=== PATIENT | male | born 1945 ===

== ENCOUNTER 2022-12-10 12:35 | Inpatient (IN) | payer MEDICARE ==
[2022-12-10 13:37] LABS: #Monocytes 0.6 10x3/uL (0.0-1.1); #Neutrophils 9.7 10x3/uL (1.5-8.4); %Basophils 0.4 % (0.0-2.0); %Eosinophils 0.3 % (0.0-6.0); %Lymphocytes 3.8 % (18.0-47.0); %Monocytes 5.4 % (0.0-10.0); %Neutrophils 89.7 % (40.0-75.0); Hematocrit 33.9 % (38.8-50.0); Hemoglobin 10.8 g/dL (13.5-17.5); Mean Corpuscular HGB CONC 31.9 g/dL (32.0-36.0); Mean Corpuscular Hemoglobin 32.5 pg (27.0-33.0); Mean Corpuscular Volume 102.1 fl (81.2-95.1); Mean Platelet Volume 11.3 fl (7.4-10.4); Platelet Count 158 10x3/uL (150-450); RBC Distribution Width 16.6 % (11.5-14.5); Red Blood Cell (RBC) Count 3.32 10x6/uL (4.32-5.72); White Blood Cell (WBC) Count 10.8 10x3/uL (3.5-10.5)
[2022-12-10 13:50] LABS: ALT (SGPT) Less than 7 U/L (8-55); AST (SGOT) 20 U/L (5-34); Albumin 3.5 g/dL (3.4-4.8); Alkaline Phosphatase 136 U/L (40-110); Anion Gap 22 mmol/L (10-20); BUN (Urea Nitrogen) 38 mg/dL (8.4-25.7); Bilirubin, Total 0.9 mg/dL (0.2-1.2); Calc. Creatinine Clearance 0 mL/min (70-130); Calcium 8.9 mg/dL (7.8-10.44); Carbon Dioxide 25 mmol/L (23-31); Chloride 96 mmol/L (98-107); Estimated GFR 12; Globulin 4.3 g/dL (2.4-3.5); Glucose 195 mg/dL (83-110); Magnesium 2.2 mg/dL (1.6-2.6); Potassium 4.2 mmol/L (3.5-5.1); Protein, Total 7.8 g/dL (5.8-8.1); Sodium 139 mmol/L (136-145)
[2022-12-10 13:56] LABS: Troponin I 0.097 ng/mL (< 0.028)
[2022-12-10 14:24] LABS: SARS-CoV-2 NAA Rapid Test Not Detected (NotDetected)
[2022-12-10] MEDS ORDERED: Furosemide 40 MG/4 ML VIAL ONE (14:57)
[2022-12-10] MEDS ORDERED: Glucagon 1 MG/ML KIT IM PRN (15:43)
[2022-12-10] MEDS ORDERED: Dextrose 5% in Water 1,000 ML IV PRN (15:43)
[2022-12-10] MEDS ORDERED: Dextrose 50% Abboject 50 ML SYRINGE SLOW IVP PRN (15:43)
[2022-12-10] MEDS ORDERED: Ondansetron ODT 4 MG TAB PO PRN (15:43)
[2022-12-10] MEDS: Heparin 5,000 UNITS/ML VIAL SC SCH (22:13)
[2022-12-10] MEDS ORDERED: Heparin 10,000 UNITS/ 10 ML VIAL CATH SCH ×2 (22:15)
[2022-12-11 01:45] LABS: HBSAg Index 0.26 S/CO (0-0.99); Hep B Surf Ag Non-Reactive S/CO (NonReactive)
[2022-12-11 05:54] LABS: ALT (SGPT) Less than 7 U/L (8-55); AST (SGOT) 18 U/L (5-34); Albumin 3.3 g/dL (3.4-4.8); Alkaline Phosphatase 126 U/L (40-110); Anion Gap 23 mmol/L (10-20); BUN (Urea Nitrogen) 28 mg/dL (8.4-25.7); Calc. Creatinine Clearance 41 mL/min (70-130); Calcium 9.1 mg/dL (7.8-10.44); Carbon Dioxide 24 mmol/L (23-31); Chloride 96 mmol/L (98-107); Estimated GFR 15; Globulin 4.5 g/dL (2.4-3.5); Glucose 129 mg/dL (83-110); Magnesium 2.1 mg/dL (1.6-2.6); Protein, Total 7.8 g/dL (5.8-8.1); Sodium 139 mmol/L (136-145)
[2022-12-11 06:06] LABS: #Basophils 0.1 10x3/uL (0.0-0.2); #Monocytes 0.7 10x3/uL (0.0-1.1); #Neutrophils 11.8 10x3/uL (1.5-8.4); %Basophils 0.5 % (0.0-2.0); %Eosinophils 0.2 % (0.0-6.0); %Lymphocytes 3.9 % (18.0-47.0); %Neutrophils 90.1 % (40.0-75.0); Hematocrit 32.5 % (38.8-50.0); Hemoglobin 10.3 g/dL (13.5-17.5); Mean Corpuscular HGB CONC 31.7 g/dL (32.0-36.0); Mean Corpuscular Hemoglobin 32.5 pg (27.0-33.0); Mean Corpuscular Volume 102.5 fl (81.2-95.1); Mean Platelet Volume 11.1 fl (7.4-10.4); Platelet Count 164 10x3/uL (150-450); RBC Distribution Width 16.6 % (11.5-14.5); Red Blood Cell (RBC) Count 3.17 10x6/uL (4.32-5.72); White Blood Cell (WBC) Count 13.1 10x3/uL (3.5-10.5)
[2022-12-11] MEDS: Aspirin Chewable 81 MG TAB PO SCH (08:37)
[2022-12-11] MEDS: Lisinopril 2.5 MG TAB PO SCH (08:37)
[2022-12-11] MEDS: Heparin 5,000 UNITS/ML VIAL SC SCH (10:53)
[2022-12-11 14:34] LABS: HBSAB Concentration 13.19 mIU/mL; Hep B Surf AB Reactive (NonReactive)
[2022-12-11] MEDS: cefTRIAXone\\ROCEPHIN 1 GM in Sodium Chloride 0.9% 100 ML IVPB SCH (15:22)
[2022-12-11] MEDS ORDERED: Apixaban 2.5 MG TAB PO SCH (21:00)
[2022-12-11] MEDS: Atorvastatin Calcium 10 MG TAB PO SCH (22:15)
[2022-12-11] MEDS: Apixaban 5 MG TAB PO SCH (22:15)
[2022-12-11] MEDS: Insulin Regular 300 UNITS/3 ML VIAL SC PRN (22:45)
[2022-12-11] MEDS: Lantus 1000 UNITS/10 ML VIAL SC SCH (22:46)
[2022-12-12 05:35] LABS: Hematocrit 30.6 % (38.8-50.0); Hemoglobin 9.8 g/dL (13.5-17.5); Mean Corpuscular Hemoglobin 32.5 pg (27.0-33.0); Mean Corpuscular Volume 101.3 fl (81.2-95.1); Mean Platelet Volume 11.2 fl (7.4-10.4); Platelet Count 155 10x3/uL (150-450); RBC Distribution Width 16.6 % (11.5-14.5); Red Blood Cell (RBC) Count 3.02 10x6/uL (4.32-5.72); White Blood Cell (WBC) Count 10.4 10x3/uL (3.5-10.5)
[2022-12-12 05:38] LABS: MDiff Complete? YES
[2022-12-12] MEDS: Levothyroxine 150 MCG TAB PO SCH (05:41)
[2022-12-12 06:34] LABS: Band 9 % (5-11); Lymphocytes 5 % (21-51); Monocytes 2 % (0-10); Neutrophil 84 % (42-75)
[2022-12-12 06:40] LABS: Hypochromia SLIGHT = 6-15 cells (100X) (0-5/hpf)
[2022-12-12 06:41] LABS: Platelet Adequacy Comment Appears Adequate
[2022-12-12 06:44] LABS: Anion Gap 21 mmol/L (10-20); BUN (Urea Nitrogen) 26 mg/dL (8.4-25.7); Calc. Creatinine Clearance 45 mL/min (70-130); Calcium 8.7 mg/dL (7.8-10.44); Carbon Dioxide 22 mmol/L (23-31); Chloride 97 mmol/L (98-107); Estimated GFR 17; Glucose 161 mg/dL (83-110); Potassium 4.2 mmol/L (3.5-5.1); Sodium 136 mmol/L (136-145)
[2022-12-12 06:47] LABS: Troponin I 0.078 ng/mL (< 0.028)
[2022-12-12] MEDS: Aspirin Chewable 81 MG TAB PO SCH (08:09)
[2022-12-12] MEDS: FLUoxetine HCl 20 MG CAP PO SCH (08:09)
[2022-12-12] MEDS: cefTRIAXone\\ROCEPHIN 1 GM in Sodium Chloride 0.9% 100 ML IVPB SCH (08:09)
[2022-12-12] MEDS: Lisinopril 2.5 MG TAB PO SCH (08:09)
[2022-12-12] MEDS: Apixaban 5 MG TAB PO SCH ×2 (08:09→20:48)
[2022-12-12] MEDS ORDERED: Heparin 10,000 UNITS/ 10 ML VIAL SLOW IVP PRN (09:03)
[2022-12-12] MEDS ORDERED: Meropenem 500 MG in Sodium Chloride 0.9% 100 ML IVPB SCH (11:35)
[2022-12-12] MEDS ORDERED: Meropenem 1 GM in Sodium Chloride 0.9% 100 ML IVPB SCH (12:00)
[2022-12-12] MEDS: Insulin Regular 300 UNITS/3 ML VIAL SC PRN (16:26)
[2022-12-12] MEDS: Acetaminophen 325 MG TAB PO PRN (20:47)
[2022-12-12] MEDS: Lantus 1000 UNITS/10 ML VIAL SC SCH (20:48)
[2022-12-12] MEDS: Atorvastatin Calcium 10 MG TAB PO SCH (20:48)
[2022-12-12] MEDS: Meropenem 500 MG in Sodium Chloride 0.9% 100 ML IVPB SCH (20:58)
[2022-12-12] MEDS ORDERED: guaiFENesin ER 600 MG TAB PO SCH (21:30)
[2022-12-13] MEDS: Acetaminophen 325 MG TAB PO PRN ×2 (03:09→20:36)
[2022-12-13 04:18] VITALS: BMI 60.4
[2022-12-13] MEDS: Levothyroxine 150 MCG TAB PO SCH (05:42)
[2022-12-13 05:57] LABS: Hematocrit 30.2 % (38.8-50.0); Hemoglobin 9.6 g/dL (13.5-17.5); MDiff Complete? YES; Mean Corpuscular HGB CONC 31.8 g/dL (32.0-36.0); Mean Corpuscular Hemoglobin 31.6 pg (27.0-33.0); Mean Corpuscular Volume 99.3 fl (81.2-95.1); Platelet Count 178 10x3/uL (150-450); RBC Distribution Width 16.4 % (11.5-14.5); Red Blood Cell (RBC) Count 3.04 10x6/uL (4.32-5.72); White Blood Cell (WBC) Count 18.2 10x3/uL (3.5-10.5)
[2022-12-13 06:00] LABS: Anion Gap 17 mmol/L (10-20); BUN (Urea Nitrogen) 28 mg/dL (8.4-25.7); Calc. Creatinine Clearance 49 mL/min (70-130); Calcium 9.1 mg/dL (7.8-10.44); Carbon Dioxide 25 mmol/L (23-31); Chloride 96 mmol/L (98-107); Estimated GFR 19; Glucose 156 mg/dL (83-110); Potassium 3.8 mmol/L (3.5-5.1); Sodium 134 mmol/L (136-145)
[2022-12-13] MEDS: Insulin Regular 300 UNITS/3 ML VIAL SC PRN ×2 (06:15→16:28)
[2022-12-13 06:55] LABS: Band 8 % (5-11); Lymphocytes 2 % (21-51); Monocytes 6 % (0-10); Neutrophil 83 % (42-75); Reactive Lymphocytes 1 % (0-10)
[2022-12-13 06:59] LABS: Hypochromia SLIGHT = 6-15 cells (100X) (0-5/hpf); Microcytosis SLIGHT = 6-15 cells (100X) (0-5/hpf); Ovalocytes SLIGHT = 2-5 cells (100X) (0-1/hpf); Target Cells SLIGHT = 2-5 cells (100X) (0-1/hpf)
[2022-12-13 07:00] LABS: Platelet Adequacy Comment Appears Adequate
[2022-12-13] MEDS: Apixaban 5 MG TAB PO SCH ×2 (08:31→20:35)
[2022-12-13] MEDS: guaiFENesin ER 600 MG TAB PO SCH ×2 (08:31→20:35)
[2022-12-13] MEDS: Lisinopril 2.5 MG TAB PO SCH (08:31)
[2022-12-13] MEDS: Aspirin Chewable 81 MG TAB PO SCH (08:31)
[2022-12-13] MEDS: FLUoxetine HCl 20 MG CAP PO SCH (08:31)
[2022-12-13] MEDS ORDERED: GUAIFENESIN SF SOLN 200 MG/10 ML UDCUP PO PRN (09:46)
[2022-12-13] MEDS: Atorvastatin Calcium 10 MG TAB PO SCH (20:35)
[2022-12-13] MEDS: Lantus 1000 UNITS/10 ML VIAL SC SCH (20:35)
[2022-12-13] MEDS: Meropenem 500 MG in Sodium Chloride 0.9% 100 ML IVPB SCH (21:46)
[2022-12-14] MEDS ORDERED: traMADol HCl 50 MG TAB PO SCH (01:45)
[2022-12-14] MEDS ORDERED: Calcium Gluc 4.6 MEQ/10 ML (100 MG/ML) SLOW IVP SCH (04:45)
[2022-12-14 05:16] LABS: #Eosinphils 0.1 10x3/uL (0.0-0.5); %Basophils 0.2 % (0.0-2.0); %Eosinophils 0.3 % (0.0-6.0); %Lymphocytes 2.2 % (18.0-47.0); %Monocytes 5.5 % (0.0-10.0); %Neutrophils 90.8 % (40.0-75.0); Hematocrit 27.9 % (38.8-50.0); Hemoglobin 9.1 g/dL (13.5-17.5); Mean Corpuscular HGB CONC 32.6 g/dL (32.0-36.0); Mean Corpuscular Hemoglobin 31.8 pg (27.0-33.0); Mean Corpuscular Volume 97.6 fl (81.2-95.1); Mean Platelet Volume 10.6 fl (7.4-10.4); Platelet Count 184 10x3/uL (150-450); RBC Distribution Width 16.2 % (11.5-14.5); Red Blood Cell (RBC) Count 2.86 10x6/uL (4.32-5.72); White Blood Cell (WBC) Count 18.7 10x3/uL (3.5-10.5)
[2022-12-14 05:17] LABS: Anion Gap 15 mmol/L (10-20); BUN (Urea Nitrogen) 41 mg/dL (8.4-25.7); Calc. Creatinine Clearance 41 mL/min (70-130); Calcium 8.9 mg/dL (7.8-10.44); Carbon Dioxide 28 mmol/L (23-31); Chloride 96 mmol/L (98-107); Estimated GFR 15; Glucose 199 mg/dL (83-110); Potassium 3.7 mmol/L (3.5-5.1); Sodium 135 mmol/L (136-145)
[2022-12-14] MEDS: Levothyroxine 150 MCG TAB PO SCH (06:23)
[2022-12-14] MEDS: Insulin Regular 300 UNITS/3 ML VIAL SC PRN ×2 (06:52→18:05)
[2022-12-14] MEDS: guaiFENesin ER 600 MG TAB PO SCH ×2 (08:39→22:43)
[2022-12-14] MEDS: Aspirin Chewable 81 MG TAB PO SCH (08:39)
[2022-12-14] MEDS: Apixaban 5 MG TAB PO SCH ×2 (08:39→22:43)
[2022-12-14] MEDS: FLUoxetine HCl 20 MG CAP PO SCH (08:39)
[2022-12-14] MEDS: Lisinopril 2.5 MG TAB PO SCH (08:39)
[2022-12-14] MEDS: Meropenem 500 MG in Sodium Chloride 0.9% 100 ML IVPB SCH (22:40)
[2022-12-14] MEDS: Acetaminophen 325 MG TAB PO PRN (22:42)
[2022-12-14] MEDS: Lantus 1000 UNITS/10 ML VIAL SC SCH (22:42)
[2022-12-14] MEDS: Atorvastatin Calcium 10 MG TAB PO SCH (22:43)
[2022-12-15 05:38] LABS: #Eosinphils 0.1 10x3/uL (0.0-0.5); #Monocytes 0.8 10x3/uL (0.0-1.1); #Neutrophils 11.1 10x3/uL (1.5-8.4); %Basophils 0.3 % (0.0-2.0); %Eosinophils 0.6 % (0.0-6.0); %Lymphocytes 4.9 % (18.0-47.0); %Monocytes 6.5 % (0.0-10.0); %Neutrophils 86.2 % (40.0-75.0); Hematocrit 30.2 % (38.8-50.0); Hemoglobin 9.9 g/dL (13.5-17.5); Mean Corpuscular HGB CONC 32.8 g/dL (32.0-36.0); Mean Corpuscular Hemoglobin 32.2 pg (27.0-33.0); Mean Corpuscular Volume 98.4 fl (81.2-95.1); Mean Platelet Volume 11.3 fl (7.4-10.4); Platelet Count 189 10x3/uL (150-450); RBC Distribution Width 16.7 % (11.5-14.5); Red Blood Cell (RBC) Count 3.07 10x6/uL (4.32-5.72); White Blood Cell (WBC) Count 12.9 10x3/uL (3.5-10.5)
[2022-12-15 05:52] LABS: Anion Gap 19 mmol/L (10-20); BUN (Urea Nitrogen) 40 mg/dL (8.4-25.7); Calc. Creatinine Clearance 46 mL/min (70-130); Calcium 9.1 mg/dL (7.8-10.44); Carbon Dioxide 26 mmol/L (23-31); Chloride 96 mmol/L (98-107); Estimated GFR 18; Glucose 184 mg/dL (83-110); Potassium 4.3 mmol/L (3.5-5.1); Sodium 137 mmol/L (136-145)
[2022-12-15] MEDS: Levothyroxine 150 MCG TAB PO SCH (05:52)
[2022-12-15] MEDS: Lisinopril 2.5 MG TAB PO SCH (08:44)
[2022-12-15] MEDS: Aspirin Chewable 81 MG TAB PO SCH (08:44)
[2022-12-15] MEDS: Apixaban 5 MG TAB PO SCH ×2 (08:44→21:05)
[2022-12-15] MEDS: FLUoxetine HCl 20 MG CAP PO SCH (08:44)
[2022-12-15] MEDS: guaiFENesin ER 600 MG TAB PO SCH ×2 (08:45→21:05)
[2022-12-15] MEDS: Acetaminophen 325 MG TAB PO PRN ×2 (08:49→21:12)
[2022-12-15] MEDS: Insulin Regular 300 UNITS/3 ML VIAL SC PRN ×2 (18:08→21:09)
[2022-12-15] MEDS: Meropenem 500 MG in Sodium Chloride 0.9% 100 ML IVPB SCH (21:00)
[2022-12-15] MEDS: Atorvastatin Calcium 10 MG TAB PO SCH (21:05)
[2022-12-15] MEDS: Lantus 1000 UNITS/10 ML VIAL SC SCH (21:06)
[2022-12-16] MEDS: Acetaminophen 325 MG TAB PO PRN ×2 (01:39→09:26)
[2022-12-16 05:21] LABS: #Basophils 0.1 10x3/uL (0.0-0.2); #Eosinphils 0.1 10x3/uL (0.0-0.5); #Neutrophils 9.9 10x3/uL (1.5-8.4); %Basophils 0.4 % (0.0-2.0); %Eosinophils 0.7 % (0.0-6.0); %Lymphocytes 5.8 % (18.0-47.0); %Monocytes 8.5 % (0.0-10.0); %Neutrophils 82.6 % (40.0-75.0); Hematocrit 31.8 % (38.8-50.0); Hemoglobin 10.4 g/dL (13.5-17.5); Mean Corpuscular HGB CONC 32.7 g/dL (32.0-36.0); Mean Corpuscular Hemoglobin 31.8 pg (27.0-33.0); Mean Corpuscular Volume 97.2 fl (81.2-95.1); Mean Platelet Volume 11.5 fl (7.4-10.4); Platelet Count 197 10x3/uL (150-450); RBC Distribution Width 16.7 % (11.5-14.5); Red Blood Cell (RBC) Count 3.27 10x6/uL (4.32-5.72)
[2022-12-16 05:48] LABS: Anion Gap 21 mmol/L (10-20); BUN (Urea Nitrogen) 47 mg/dL (8.4-25.7); Calc. Creatinine Clearance 43 mL/min (70-130); Calcium 9.1 mg/dL (7.8-10.44); Carbon Dioxide 24 mmol/L (23-31); Chloride 96 mmol/L (98-107); Estimated GFR 16; Glucose 177 mg/dL (83-110); Potassium 4.5 mmol/L (3.5-5.1); Sodium 136 mmol/L (136-145)
[2022-12-16] MEDS: Levothyroxine 150 MCG TAB PO SCH (05:52)
[2022-12-16] MEDS: Insulin Regular 300 UNITS/3 ML VIAL SC PRN ×2 (05:55→22:06)
[2022-12-16] MEDS: Lisinopril 2.5 MG TAB PO SCH (08:37)
[2022-12-16] MEDS: Apixaban 5 MG TAB PO SCH ×2 (08:37→22:06)
[2022-12-16] MEDS: Aspirin Chewable 81 MG TAB PO SCH (08:38)
[2022-12-16] MEDS: FLUoxetine HCl 20 MG CAP PO SCH (08:38)
[2022-12-16] MEDS: guaiFENesin ER 600 MG TAB PO SCH ×2 (08:38→22:06)
[2022-12-16] MEDS: Meropenem 500 MG in Sodium Chloride 0.9% 100 ML IVPB SCH (22:05)
[2022-12-16] MEDS: Lantus 1000 UNITS/10 ML VIAL SC SCH (22:06)
[2022-12-16] MEDS: Atorvastatin Calcium 10 MG TAB PO SCH (22:06)
[2022-12-17 03:53] LABS: #Eosinphils 0.1 10x3/uL (0.0-0.5); #Neutrophils 8.2 10x3/uL (1.5-8.4); %Basophils 0.4 % (0.0-2.0); %Eosinophils 1.2 % (0.0-6.0); %Lymphocytes 7.1 % (18.0-47.0); %Monocytes 9.4 % (0.0-10.0); %Neutrophils 79.6 % (40.0-75.0); Hematocrit 31.7 % (38.8-50.0); Hemoglobin 10.5 g/dL (13.5-17.5); Mean Corpuscular HGB CONC 33.1 g/dL (32.0-36.0); Mean Corpuscular Hemoglobin 32.2 pg (27.0-33.0); Mean Corpuscular Volume 97.2 fl (81.2-95.1); Mean Platelet Volume 11.3 fl (7.4-10.4); Platelet Count 229 10x3/uL (150-450); RBC Distribution Width 17.1 % (11.5-14.5); Red Blood Cell (RBC) Count 3.26 10x6/uL (4.32-5.72); White Blood Cell (WBC) Count 10.3 10x3/uL (3.5-10.5)
[2022-12-17] MEDS: Acetaminophen 325 MG TAB PO PRN (04:07)
[2022-12-17 04:17] LABS: Anion Gap 17 mmol/L (10-20); BUN (Urea Nitrogen) 57 mg/dL (8.4-25.7); Calc. Creatinine Clearance 39 mL/min (70-130); Calcium 9.4 mg/dL (7.8-10.44); Carbon Dioxide 27 mmol/L (23-31); Chloride 96 mmol/L (98-107); Estimated GFR 14; Glucose 163 mg/dL (83-110); Potassium 4.4 mmol/L (3.5-5.1); Sodium 136 mmol/L (136-145)
[2022-12-17] MEDS: Levothyroxine 150 MCG TAB PO SCH (06:38)
[2022-12-17] MEDS: Insulin Regular 300 UNITS/3 ML VIAL SC PRN (07:05)
[2022-12-17] MEDS: guaiFENesin ER 600 MG TAB PO SCH (14:58)
[2022-12-17] MEDS: Lisinopril 2.5 MG TAB PO SCH (14:59)
[2022-12-17] MEDS ORDERED: Cefepime 1 GM in Sodium Chloride 0.9% 100 ML IVPB SCH (15:00)
[2022-12-17 15:09] VITALS: BP 107/62; TEMP 97.8
[2022-12-17] MEDS: Apixaban 5 MG TAB PO SCH (15:17)
[2022-12-17] MEDS: Aspirin Chewable 81 MG TAB PO SCH (15:18)
[2022-12-17] MEDS: FLUoxetine HCl 20 MG CAP PO SCH (15:18)
== END 2022-12-17 17:05 | DRG 280 ==
LOC: CSHERS 12:35 → CSHTELE 15:16
PROVIDERS: ADMIT Family Medicine; ATTEND Internal Medicine
DX: I13.2 Hypertensive heart and chronic kidney disease with heart failure and with stage 5 chronic kidney disease, or end stage renal disease (principal); I21.A1 Myocardial infarction type 2; A41.9 Sepsis, unspecified organism; I50.33 Acute on chronic diastolic (congestive) heart failure; N18.6 End stage renal disease; I48.11 Longstanding persistent atrial fibrillation; E87.1 Hypo-osmolality and hyponatremia; Z68.44 Body mass index [BMI] 60.0-69.9, adult; E11.22 Type 2 diabetes mellitus with diabetic chronic kidney disease; J44.9 Chronic obstructive pulmonary disease, unspecified; I25.10 Atherosclerotic heart disease of native coronary artery without angina pectoris; G47.33 Obstructive sleep apnea (adult) (pediatric); E03.9 Hypothyroidism, unspecified; E78.5 Hyperlipidemia, unspecified; B96.5 Pseudomonas (aeruginosa) (mallei) (pseudomallei) as the cause of diseases classified elsewhere; E11.65 Type 2 diabetes mellitus with hyperglycemia; R53.1 Weakness; Z20.822 Contact with and (suspected) exposure to COVID-19; E66.01 Morbid (severe) obesity due to excess calories; R53.81 Other malaise; Z95.818 Presence of other cardiac implants and grafts; Z98.890 Other specified postprocedural states; Z88.8 Allergy status to other drugs, medicaments and biological substances; Z91.199 Patient's noncompliance with other medical treatment and regimen due to unspecified reason; Z99.2 Dependence on renal dialysis; Z95.5 Presence of coronary angioplasty implant and graft
CPT/HCPCS: 36415; 36416; 71045; 80048; 80053; 82310; 83735; 83880; 84145; 84443; 84484; 85025; 86706; 87040; 87077; 87149; 87186; 87340; 90935; 93005; 93306; 93922; 94760; 94762; 96374; 97139; G0257; J0612; J0692; J0696; J1644; J1815; J1940; J2185; J3490